=== PATIENT | female | born 2000 | race Caucasian/White ===

== ENCOUNTER 2024-02-16 19:04 | Emergency (ER) | payer OTHER ==
[2024-02-16 19:20] VITALS: BP 120/81; PULSE 85; RESP 18; TEMP 98.5; BMI 19.7
[2024-02-16 21:38] LABS: HIV INTERPRETATION NEGATIVE (NEGATIVE)
== END 2024-02-16 20:41 | disposition home or self-care (01) ==
LOC: JER 19:04
DX: Z11.3 Encounter for screening for infections with a predominantly sexual mode of transmission (principal)
CPT/HCPCS: 36415; 86803; 87389; 87491; 87591; 87661; 99283-25